=== PATIENT | male | born 1955 | race Caucasian/White ===

== ENCOUNTER → 2019-03-10 13:58 | Emergency (ER) | payer OTHER ==
--- NOTE | 2019-03-10 14:32 | ED ---
Lower Extremity - HPI Summary HPI Summary: The patient is a 63 y/o M presenting to [facility] accompanied by with a chief complaint of gradual onset increase in swelling, bruising, erythema, and warmth in the left lower medial leg after sustaining a hit with a hockey puck in the area a week ago. He reports that he was wearing pereira guards while playing hockey , but the puck hit him from the side. While the bruising and swelling as decreased, there has been an increased in erythema and warmth in the area. The dull pain is currently rated 1/10 in severity. There are no aggravating or alleviating factors. He denies decreased ROM of the left ankle and SOB. Hx of infection in the left medial lower leg (2x). He visited [facility] [employer] who suggested he come to the ED for DVT workup. He is going to [facility] in four days. - History of Current Complaint Chief Complaint: EDExtremityLower Stated Complaint: "LEFT LEG PAIN PER PT" Time Seen by Provider: 03/10/19 14:18 Hx Obtained From: Patient Mechanism Of Injury: Direct Blow - hit with hockey puck Onset of Pain: Immediate Onset/Duration: Still Present - one week Severity Initially: Mild Severity Currently: Mild Pain Intensity: 1 Pain Scale Used: 0-10 Numeric Timing: Lasting Days Location: Is Discrete @ - lower left medial leg Character Of Pain: Dull Associated Signs And Symptoms: Positive: Swelling, Redness, Bruising, Other - POSITIVE: warmth in left lower medial leg; NEGATIVE: SOB, decreased ROM in the left ankle Aggravating Factor(s): Nothing Alleviating Factor(s): Nothing Able to Bear Weight: Yes - Allergies/Home Medications Allergies/Adverse Reactions: Allergies Allergy/AdvReac Type Severity Reaction Status Date / Time No Known Allergies Allergy Verified 03/10/19 14:07 Home Medications: Home Medications Atorvastatin* [Lipitor 10 MG*] 10 mg PO 2100 03/10/19 [History Confirmed ] PMH/Surg Hx/FS Hx/Imm Hx Endocrine/Hematology History: Denies: Hx Diabetes Cardiovascular History: Denies: Hx Hypertension Musculoskeletal History: Reports: Other Musculoskeletal History - bone infection in left medial lower leg 2x Sensory History: Denies: Hx Deafness Opthamlomology History: Reports: Hx Contacts or Glasses Denies: Hx Legally Blind EENT History: Denies: Hx Deafness - Surgical History Surgical History: None Surgery Procedure, Year, and Place: none Infectious Disease History: No Infectious Disease History: Denies: Traveled Outside the [place] in Last 30 Days - Family History Known Family History: Negative: Blood Disorder - Social History Lives: With Family Alcohol Use: Occasionally Hx Substance Use: No Substance Use Type: Reports: None Hx Tobacco Use: No Smoking Status (MU): Never Smoked Tobacco Do You Chew or Dip Tobacco: No Have You Chewed or Dipped Tobacco in the LAST YEAR: No Have You Smoked in the Last Year: No Review of Systems Negative: Shortness Of Breath Negative: Decreased ROM - in the left ankle Positive: Bruising, Other - erythema, swelling, and warmth in the left medial lower leg All Other Systems Reviewed And Are Negative: Yes Physical Exam - Summary Physical Exam Summary: VITAL SIGNS: Reviewed. GENERAL: Patient is a well-developed and nourished male who is lying comfortable in the stretcher. Patient is not in any acute respiratory distress. HEAD AND FACE: No signs of trauma. No ecchymosis, hematomas or skull depressions. No sinus tenderness. EYES: PERRLA, EOMI x 2, No injected conjunctiva, no nystagmus. EARS: Hearing grossly intact. Ear canals and tympanic membranes are within normal limits. MOUTH: Oropharynx within normal limits. NECK: Supple, trachea is midline, no adenopathy, no JVD, no carotid bruit, no c- spine tenderness, neck with full ROM. CHEST: Symmetric, no tenderness at palpation LUNGS: Clear to auscultation bilaterally. No wheezing or crackles. CVS: Regular rate and rhythm, S1 and S2 present, no murmurs or gallops appreciated. ABDOMEN: Soft, non-tender. No signs of distention. No rebound no guarding, and no masses palpated. Bowel sounds are normal. EXTREMITIES: FROM in all major joints, no edema, no cyanosis or clubbing. Small area of swelling on medial aspect of left lower leg with some surrounding erythema and increase in warmth and slight tenderness NEURO: Alert and oriented x 3. No acute neurological deficits. Speech is normal and follows commands. SKIN: Dry and warm. Triage Information Reviewed: Yes Vital Signs On Initial Exam: Initial Vitals Temp Pulse Resp BP Pulse Ox 97.8 F 79 16 116/88 96 03/10/19 14:01 03/10/19 14:01 03/10/19 14:01 03/10/19 14:01 03/10/19 14:01 Vital Signs Reviewed: Yes Diagnostics - Vital Signs Vital Signs Temp Pulse Resp BP Pulse Ox 03/10/19 14:01 97.8 F 79 16 116/88 96 - Laboratory Result Diagrams: 03/10/19 14:46 03/10/19 14:46 Lab Statement: Any lab studies that have been ordered have been reviewed, and results considered in the medical decision making process. - Ultrasound No standard instances Ultrasound Interpretation Completed By: Radiologist Summary of Ultrasound Findings: L Leg DVT US: No evidence for deep venous thrombosis. ED physician has reviewed this radiology report. Re-Evaluation - Re-Evaluation First Eval Re-Evaluation Time: 16:05 Comment: I discussed the results of the US with the patient, and we discussed discharge home. Lower Extremity Course/Dx - Course Assessment/Plan: The patient is a 63 y/o M presenting to [facility] accompanied by with a chief complaint of gradual onset increase in swelling, bruising, erythema, and warmth in the left lower medial leg after sustaining a hit with a hockey puck in the area a week ago. He reports that he was wearing pereira guards while playing hockey, but the puck hit him from the side. While the bruising and swelling as decreased, there has been an increased in erythema and warmth in the area. The dull pain is currently rated 1/10 in severity. There are no aggravating or alleviating factors. He denies decreased ROM of the left ankle and SOB. Hx of infection in the left medial lower leg (2x). He visited [facility] [employer] who suggested he come to the ED for DVT workup. He is going to [facility] in four days. Blood test results without any significant abnormality. Ultrasound of the lower extremity impression: No DVT. The patient seems to have lower extremity cellulitis. Therefore, the patient was placed on Bactrim. The patient will be discharged home with follow-up with PCP. I discussed all the findings and test results with the patient. Patient was instructed to return to the emergency room immediately if any of the symptoms return or worsen. Plan of care was discussed with the patient, and he understands and agrees. All questions were answered at patient satisfaction. There were no further complaints or concerns. Lung exam before discharge: CTA B/L. Good air exchange. No wheezing or crackles heard. CVS: S1 and S2 present. No murmurs appreciated. Patient is alert and oriented x 3. Patient is hemodynamically stable. - Diagnoses Provider Diagnoses: Cellulitis Discharge - Sign-Out/Discharge Documenting (check all that apply): Patient Departure - Patient will be discharged home. Patient Received Moderate/Deep Sedation with Procedure: No - Discharge Plan Condition: Stable Disposition: HOME Prescriptions: Sulfamethox/Trimethoprim DS* [Bactrim DS 800/160 TAB*] 1 tab PO BID #20 tab Patient Education Materials: Cellulitis (DC) Referrals: [facility] [Outside] - 3 Days Additional Instructions: PLEASE TAKE MEDICATIONS PRESCRIBED. FOLLOW UP WITH THE PRIMARY CARE PROVIDER IN 2-3 DAYS. RETURN TO THE EMERGENCY DEPARTMENT FOR ANY NEW OR WORSENING SYMPTOMS. - Billing Disposition and Condition Condition: STABLE Disposition: Home - Attestation Statements Document Initiated by Rodolfo: Yes Documenting Scribe: Lourdes Lorenzana Provider For Whom Rodolfo is Documenting (Include Credential): Dr. Pascual Denney MD Scribe Attestation: Lourdes Pineda scribed for Dr. Pascual Denney MD on 03/10/19 at 1924. Scribe Documentation Reviewed: Yes Provider Attestation: The documentation as recorded by the Lourdes zaragoza accurately reflects the service I personally performed and the decisions made by me, Dr. Pascual Denney MD Status of Scribe Document: Ready
[2019-03-10 14:58] LABS: ABS Basophils 0.1 10^3/ul (0-0.2); ABS Lymphocytes 1.6 10^3/ul (1.0-4.8); ABS Monocytes 0.6 10^3/ul (0-0.8); ABS Neutrophils 4.8 10^3/ul (1.5-7.7); Eosinophil % 0.7 %; Hematocrit 42 % (42-52); Hemoglobin 14.1 g/dL (14.0-18.0); Lymphocyte % 22.7 %; Mean Corpuscular HGB Conc 34 g/dL (31-36); Mean Corpuscular Hemoglobin 31 pg (27-31); Mean Corpuscular Volume 91 fL (80-94); Mean Platelet Volume 8.2 fL (7.4-10.4); Nucleated Red Blood Cells % 0.1; Platelet Count 232 10^3/uL (150-450); Red Blood Count 4.63 10^6 /uL (4.18-5.48); Red Cell Distribution Width 13 % (10-15); White Blood Count 7.1 10^3/uL (3.5-10.8)
[2019-03-10 15:09] LABS: C Reactive Protein 5.58 mg/L (<8.01)
[2019-03-10 15:27] LABS: Albumin 4.1 g/dL (3.2-5.2); Albumin/Globulin Ratio 1.3 (1-3); BUN/Creatinine Ratio 17.1 (8-20); Calcium 9.1 mg/dL (8.6-10.3); EGFR African American 114.8 (>60); EGFR Non-African American 94.9 (>60); Globulin 3.1 g/dL (2-4); Potassium 3.8 mmol/L (3.5-5.0); Total Bilirubin 0.7 mg/dL (0.2-1.0); Total Protein 7.2 g/dL (6.4-8.9)
[2019-03-10 16:18] VITALS: BP 141/94
== END | disposition home or self-care (01) ==
LOC: ED 13:58
DX: L03.116 Cellulitis of left lower limb (principal)
CPT/HCPCS: 36415; 80053; 83605; 85025; 86140; 99283